=== PATIENT | female | born 1955 | race Caucasian/White ===

== ENCOUNTER 2022-04-03 13:23 | Emergency (ER) | payer MEDICARE, BC ==
[2022-04-03 13:45] VITALS: BP 200/92; PULSE 103; RESP 18; TEMP 98.2
[2022-04-03] MEDS ORDERED: IBUPROFEN 400 MG TAB PO STA (13:59)
--- NOTE | 2022-04-03 14:38 | XR ---
EXAMINATION TYPE: XR shoulder complete LT DATE OF EXAM: 04/03/2022 COMPARISON: NONE INDICATION: Pain after fall 2 days ago TECHNIQUE: 3 views of the left shoulder FINDINGS: Fractured lateral diaphysis of the left clavicle with bone fragments, element of impaction, bone overriding and inferior medial displacement of the lateral fracture fragment. Osteopenia. Mild degenerative changes of the acromioclavicular joint. Unremarkable glenohumeral artic ulation. No other definite acute fracture line identified. No humeral head dislocation or significant subluxation. No signs of rotator cuff calcific tendinitis. Maintained acromiohumeral distance. IMPRESSION: Lateral clavicular fracture as described above.
--- NOTE | 2022-04-03 14:44 | ED ---
Upper Extremity HPI - General Chief Complaint: Extremity Injury, Upper Stated Complaint: fall, shoulder pain Time Seen by Provider: 04/03/22 13:46 Source: patient Mode of arrival: ambulatory Limitations: no limitations - History of Present Illness Initial Comments: Patient complains of injury to the left shoulder. She fell off a stool. She denies head. She did not lose conscious. She has no neck pain. She has pain in left shoulder. The pain is worse with movement. She took no medicine for this. She has no weakness in the arm. She has no paresthesias. She has no other injuries. - Related Data Allergies Allergy/AdvReac Type Severity Reaction Status Date / Time No Known Allergies Allergy Verified 04/03/22 13:44 Review of Systems ROS Statement: Those systems with pertinent positive or pertinent negative responses have been documented in the HPI. ROS Other: All systems not noted in ROS Statement are negative. Past Medical History Past Medical History: No Reported History Past Surgical History: Cholecystectomy Past Psychological History: No Psychological Hx Reported Smoking Status: Current some day smoker Past Alcohol Use History: Occasional Past Drug Use History: None Reported General Exam Limitations: no limitations General appearance: alert, in no apparent distress Head exam: Present: atraumatic, normocephalic, normal inspection Respiratory exam: Absent: respiratory distress Extremities exam: Present: tenderness Course Vital Signs 04/03/22 13:41 Temperature 98.2 F Pulse Rate 103 H Respiratory 18 Rate Blood Pressure 200/92 O2 Sat by Pulse 95 Oximetry Medical Decision Making - Medical Decision Making Patient had a fall off a stool. She broke her left clavicle. I ordered a sling. She remains neurovascularly intact. She is stable for discharge. She will follow-up with orthopedics. Disposition Clinical Impression: Fracture, clavicle Disposition: HOME SELF-CARE Condition: Good Instructions (If sedation given, give patient instructions): Clavicle Fracture (DC) Is patient prescribed a controlled substance at d/c from ED?: No Referrals: None,Stated [Primary Care Provider] - 1-2 days Guido Kline MD [STAFF PHYSICIAN] - 1-2 days
== END 2022-04-03 15:05 | disposition home or self-care (01) ==
LOC: EC 13:23
DX: S42.002A Fracture of unspecified part of left clavicle, initial encounter for closed fracture (principal); F17.200 Nicotine dependence, unspecified, uncomplicated; W08.XXXA Fall from other furniture, initial encounter
CPT/HCPCS: 99283